=== PATIENT | male | born 1990 | race Caucasian/White ===

== ENCOUNTER 2020-03-26 03:16 | Emergency (ER) | payer MEDICAID ==
[~2020-03-26] VITALS: Ht 193 cm; Wt 95.5 kg
[2020-03-26] MEDS ORDERED: ACYC-1 PO (03:25)
[2020-03-26 03:36] VITALS: BP 123/100
== END 2020-03-26 03:37 | disposition home or self-care (01) ==
LOC: ER 03:17
DX: B00.9 Herpesviral infection, unspecified (principal); R21 Rash and other nonspecific skin eruption; F12.90 Cannabis use, unspecified, uncomplicated; Z72.89 Other problems related to lifestyle; Z79.2 Long term (current) use of antibiotics
CPT/HCPCS: 99283

== ENCOUNTER 2020-12-02 08:05 | Emergency (ER) | payer MEDICAID ==
[~2020-12-02] VITALS: Ht 193 cm; Wt 100.0 kg
[~2020-12-02 08:05] MED LIST: CHLO118L3 TOP
[2020-12-02 08:14] VITALS: BP 129/79
== END 2020-12-02 09:08 | disposition home or self-care (01) ==
LOC: ER 08:06
DX: K13.79 Other lesions of oral mucosa (principal); F12.90 Cannabis use, unspecified, uncomplicated; Z72.89 Other problems related to lifestyle; Z79.899 Other long term (current) drug therapy
CPT/HCPCS: 99281

== ENCOUNTER 2021-07-17 19:54 | Emergency (ER) | payer MEDICAID ==
[~2021-07-17] VITALS: Ht 193 cm; Wt 95.5 kg
[2021-07-17] MEDS ORDERED: CefTRIAXone 1000mg IM Kit (w/lidocaine diluent) IM STA (21:14)
[2021-07-17] MEDS ORDERED: azithromycin 250mg tablet PO ONE (21:15)
--- NOTE | 2021-07-17 21:15 | NUR ---
PT C/O POSSIBLE STI WITH UNPROTECTED SEX WITH WHITE DISCHARGE FROM PENIS. PATIENT DENIES ANY OTHER C/O OR S/SX. PT IN NAD WITH VSS UPON INITIAL ASSESSMENT.
[2021-07-17] MEDS ORDERED: DOXY100C77 PO (21:18)
[2021-07-17 21:26] VITALS: BP 121/68
== END 2021-07-17 21:28 | disposition home or self-care (01) ==
LOC: ER 19:55
DX: A64 Unspecified sexually transmitted disease (principal); F12.90 Cannabis use, unspecified, uncomplicated; Z72.89 Other problems related to lifestyle; Z79.899 Other long term (current) drug therapy; Z79.2 Long term (current) use of antibiotics
CPT/HCPCS: 36415; 87491; 87591; 96372; 99283; J0696

== ENCOUNTER 2021-10-05 03:12 | Emergency (ER) | payer MEDICAID ==
[~2021-10-05] VITALS: Ht 193 cm; Wt 90.9 kg
[2021-10-05] MEDS ORDERED: dexamethasone sod phosphate 10mg/ml inj IV STA (05:11)
[2021-10-05] MEDS ORDERED: ampicillin/sulbac 3gm/NS 100ml 100 ML IV STA (05:11)
[2021-10-05] MEDS ORDERED: LIDOcaine 1% W/epiNEPHrine 1:100,000 20ml vial SQ ONE (05:15)
[2021-10-05] MEDS ORDERED: fentaNYL/PF 50MCG/1 ML 2ML syringe IV ONE (05:50)
[2021-10-05 06:25] VITALS: BP 136/76
[2021-10-05] MEDS ORDERED: iohexol 300mg/ml 100ml inj. ONE (06:55)
[2021-10-05] MEDS ORDERED: CLIN150C8 PO (08:06)
[2021-10-05] MEDS ORDERED: AMOX-422 PO (08:06)
== END 2021-10-05 08:33 | disposition left against medical advice (07) ==
LOC: ER 03:13
DX: K12.2 Cellulitis and abscess of mouth (principal); K13.79 Other lesions of oral mucosa; F12.90 Cannabis use, unspecified, uncomplicated; Z72.89 Other problems related to lifestyle; Z79.2 Long term (current) use of antibiotics; Z79.899 Other long term (current) drug therapy
CPT/HCPCS: 10060; 70491; 87070; 87077; 87186; 96365; 96375; 99285; J0295; J1100; J3010; J3490; Q9967

== ENCOUNTER 2022-06-20 03:25 | Emergency (ER) | payer MEDICAID ==
[~2022-06-20] VITALS: Ht 182.9 cm; Wt 90.9 kg
[~2022-06-20 03:25] MED LIST changes: +CLIN150C8 PO
[2022-06-20] MEDS ORDERED: ACYC-129 PO (04:29)
[2022-06-20 04:46] VITALS: BP 145/90
== END 2022-06-20 04:48 | disposition home or self-care (01) ==
LOC: ER 03:25
DX: B00.1 Herpesviral vesicular dermatitis (principal); F12.90 Cannabis use, unspecified, uncomplicated
CPT/HCPCS: 99283

== ENCOUNTER 2022-12-29 18:05 | Emergency (ER) | payer MEDICAID ==
[~2022-12-29] VITALS: Ht 193 cm; Wt 90.9 kg
[2022-12-29 18:11] VITALS: BP 116/70
--- NOTE | 2022-12-29 18:18 | NUR ---
SBAR TO PRIMARY RN AND MD.
[2022-12-29] MEDS ORDERED: LIDOcaine 1% W/epiNEPHrine 1:100,000 20ml vial SQ ONE (19:20)
[2022-12-29] MEDS ORDERED: LIDOCAINE 2%/EPI 1:100,000 inj. Multi-dose 20 ML VIAL SQ ONE (19:20)
[2022-12-29] MEDS ORDERED: ceFAZolin 1gm IM kit IM ONE (19:40)
[2022-12-29] MEDS ORDERED: TETanus/Pertussis (Acell)/Diphther VAC/PF (Tdap-Adult) 0.5ml syringe IMVAC ONE (19:40)
== END 2022-12-29 20:17 | disposition left against medical advice (07) ==
LOC: ER 18:06
DX: S51.812A Laceration without foreign body of left forearm, initial encounter (principal); F12.90 Cannabis use, unspecified, uncomplicated; Z72.89 Other problems related to lifestyle; Z79.899 Other long term (current) drug therapy; W26.8XXA Contact with other sharp object(s), not elsewhere classified, initial encounter; Y93.89 Activity, other specified; Y92.89 Other specified places as the place of occurrence of the external cause; Y99.8 Other external cause status
CPT/HCPCS: 12032; 90471; 90715; 96372; 99284; J0690; J7030; 12002; A6446; A6449

== ENCOUNTER 2023-06-10 04:34 | Emergency (ER) | payer MEDICAID ==
[~2023-06-10] VITALS: Ht 193 cm; Wt 111.0 kg
[~2023-06-10 04:34] MED LIST changes: +CLIN-214 PO; -CLIN150C8 PO
[2023-06-10 04:40] VITALS: BP 133/91; PULSE 104; RESP 16; TEMP 97.7; O2SAT 96
[2023-06-10] MEDS ORDERED: proparacaine 0.5% ophthalmic drops 15ml EACHEYE ONE (04:40)
[2023-06-10] MEDS ORDERED: POLOS LEFTEYE (04:56)
== END 2023-06-10 05:02 | disposition home or self-care (01) ==
LOC: ER 04:35
DX: H10.9 Unspecified conjunctivitis (principal)
CPT/HCPCS: 99283